=== PATIENT | male | born 1960 | race Caucasian/White ===

== ENCOUNTER 2017-04-11 08:29 | Outpatient (CLI) | payer BC ==
--- NOTE | 2017-04-11 12:15 | XRAY Report ---
THREE-VIEW CERVICAL SPINE: 04/11/2017 CLINICAL INDICATION: Left neck pain. FINDINGS: AP, lateral, odontoid views of the cervical spine demonstrate mild degenerative disc and f acet disease. There is no evidence of acute fracture or subluxation. The prevertebral soft tissues are unremarkable. IMPRESSION: MILD DEGENERATIVE CHANGES. JOB #: [id number] EXT JOB #:[id number]
== END 2017-04-11 08:30 | disposition home or self-care (01) ==
LOC: DI 08:29
PROVIDERS: ATTEND Nurse Practitioner Primary Care
DX: M50.30 Other cervical disc degeneration, unspecified cervical region (principal); M47.9 Spondylosis, unspecified
CPT/HCPCS: 72040

== ENCOUNTER 2017-06-12 09:31 | Outpatient (CLI) | payer BC | END 2017-06-12 09:32 | disposition home or self-care (01) | LOC: SC 09:31 | PROVIDERS: ATTEND Internal Medicine Pulmonary Disease | DX: G47.33 Obstructive sleep apnea (adult) (pediatric) (principal) | CPT/HCPCS: 99203; 99212 ==

== ENCOUNTER 2017-08-01 15:17 | Outpatient (CLI) | payer BC | END 2017-08-01 15:18 | disposition home or self-care (01) | LOC: SC 15:17 | PROVIDERS: ATTEND Nurse Practitioner Family | DX: G47.33 Obstructive sleep apnea (adult) (pediatric) (principal) | CPT/HCPCS: 99212; 99214 ==

== ENCOUNTER 2017-11-09 14:57 | Outpatient (CLI) | payer BC ==
--- NOTE | 2017-11-10 12:17 | CT Report ---
CT SINUSES WITHOUT CONTRAST: 11/09/2017 CLINICAL INDICATION: Chronic sinusitis. TECHNIQUE: Axial CT images of the paranasal sinuses were obtained without contrast, following which sagittal and coronal reconstructions were performed. FINDINGS: There is mucosal thickening in the maxillary sinuses, ethmoid air cells, frontal sinuses and sphenoid sinus, compatible with chronic sinus disease. No air fluid levels are present. Minimal rightward nasal septal deviation is noted. The ostiomeatal units are patent bilaterally. No osseous destruction is seen. The visualized orbital contents are unremarkable. IMPRESSION: CHRONIC PANSINUSITIS. CT DOSE REDUCTION STATEMENT In accordance with CT protocol optimization, one or more of the following dose reduction techniques were utilized for this exam: automated exposure control, adjustment of mA and/or KV based on patient size, or use of iterative reconstructive technique. TD: 11/10/2017 12:16 MTDD
== END 2017-11-09 14:58 | disposition home or self-care (01) ==
LOC: DI 14:57
PROVIDERS: ATTEND Internal Medicine
DX: J32.4 Chronic pansinusitis (principal)
CPT/HCPCS: 70486

== ENCOUNTER 2020-03-21 09:40 | Emergency (ER) | payer SELFPAY ==
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
[2020-03-21] MEDS ORDERED: ACETAMINOPHEN 325 MG TABLET PO STA (10:03)
[2020-03-21] MEDS ORDERED: IBUPROFEN 600 MG TABLET PO STA (10:03)
[2020-03-21] MEDS ORDERED: methocarbamoL 500 MG TABLET PO STA (10:04)
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
[2020-03-21 11:21] VITALS: BP 137/77
== END 2020-03-21 11:21 | disposition home or self-care (01) ==
LOC: ED 09:40
DX: S16.1XXA Strain of muscle, fascia and tendon at neck level, initial encounter (principal); S39.012A Strain of muscle, fascia and tendon of lower back, initial encounter; V43.52XA Car driver injured in collision with other type car in traffic accident, initial encounter; Y92.410 Unspecified street and highway as the place of occurrence of the external cause; M47.812 Spondylosis without myelopathy or radiculopathy, cervical region; M51.26 Other intervertebral disc displacement, lumbar region; F17.200 Nicotine dependence, unspecified, uncomplicated; Z79.82 Long term (current) use of aspirin
CPT/HCPCS: 72125; 72131; 99284

== ENCOUNTER 2023-07-21 10:44 | Outpatient (CLI) | payer MEDICAID ==
--- NOTE | 2023-07-21 11:43 | Sleep Patient Instructions ---
Sleep Center Visit Summary - Patient Visit Information Reason for Visit: Initial consultation - Patient Instructions Additional Instructions: You will continue with CPAP therapy with pressure set at 10-18 cmH2O. A supply prescription will be sent to your new DME supplier. They should reach out to you to set up ordering. We encourage you to continue to try to lose weight. Please follow up with the sleep care office in 1 year. - Clinic Information Contact: [facility] [address] [place] [address] [email or web address] T: [phone]
--- NOTE | 2023-07-21 11:53 | SLEEP CARE CONSULTATION ---
Information from patient questionnaire entered by Brandon Salamanca. I have reviewed and concur with the information entered by Brandon Salamanca. This document represents the service I personally performed and the decisions made by me, Tri Ochoa ARNP. History of Present Illness Service Date and Time: 07/21/2023 1044 Reason for Visit: New patient, Previously diagnosed sleep apnea, Re-establish care Chief Complaint: reports: Snoring, Observed pauses in breathing, Fatigue, Other (UPDATE SUPPLIES) Date of Onset: YRS Usual bedtime: 10PM Snores at night: Yes Observed to quit breathing while asleep: Yes Sleeps alone due to snoring: No Toss, Turn, or Twitch while sleeping: Yes Recalls having dreams: Yes Usually gets out of bed at: 0630 Feels refreshed in the morning: No Morning headache: No Sleepy or fatigued during the day: Yes Ever fallen asleep while driving: No Takes day naps: No Dreams during day naps: No Prior sleep studies: Yes Additional HPI information: TIMOTHY NAVARRO was previously seen in our office in 2017 and was documented to have been diagnosed to have severe, AHI 59.3, obstructive sleep apnea-hypopnea syndrome in 2008 and comes in today to re-establish care for CPAP therapy. - Parasomnia Symptoms Ever been unable to move upon waking from sleep: No Walks in sleep: No Talks in sleep: No Ever acted out dreams in sleep: No Ever felt weak in the knees when startled or emotional: No Bothered by creepy, crawly, restless sensations in legs: No Problems with memory or concentration: No CPAP Compliance Data - Data Reviewed with Patient Average duration of nightly device use: 7 hours 58 minutes Compliance rate %: 97.8 (90/90 days used) Current pressure setting (cmH2O): 10-18 Average residual AHI: 3.3 Average large leak: 14 mins 17 secs Compliance data discussion: He has been buying his supplies online. He is using a full face mask, [employer] AirFit F20, medium cushion. He has a Dreamstation 2. Subjective Patient concerns: denies: aerophagia, mask discomfort, air blowing in eyes, mask leak noise, condensation in mask/hose, nasal congestion, dry mouth, nose, throat, epistaxis Observed to snore while using device: No Current pressure setting perceived as: comfortable (too low at beginning of night) On therapy, patient: reports: sleeping better, awakening more refreshed, being more awake and alert during the day, more rested overall. 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 Patient is Single and lives in [place]. Have you smoked in the past 12 months: No Years of smokin Quit date: 2006 Alcohol use: Yes Alcohol amount and frequency: ONCE A WEEK Caffeine use: Yes Caffeine amount and frequency: 2 CUPS A DAY Family History Family history of sleep disordered breathing: Yes Allergies and Home Medications Known drug allergies: No Drug allergies reviewed: Yes Home medication list reviewed: Yes Allergy and home medication list: Allergies No Known Drug Allergies Allergy (Verified 07/20/23 14:16) Review of Systems Weight gain over past 5 years: 20 Cardiovascular: reports: palpitations Gastrointestinal: reports: heartburn Urinary: reports: urgency Ear/Nose/Throat: reports: nasal congestion, sinus problems Endocrine: reports: sluggishness Musculoskeletal: reports: neck pain, back pain Physical Exam Vital signs obtained and entered by: BRANDON Prabhakar MA Blood Pressure: 126/74 (LEFT ARM) Cuff size: regular Heart Rate: 76 O2 Saturation: 95 Height: 6 ft 1 in Weight: 257 lb 9.6 oz Body Mass Index: 34.0 BMI Classification: Obese Neck circumference: 20.5 Heart: regular rate and rhythm Lungs: clear bilaterally Impression and Plan 1. Obstructive Sleep Apnea-Hypopnea Syndrome, severe, with good treatment compliance and good apnea control. On CPAP therapy, the patient has better sleep quality and is more rested overall. Patient has been using his CPAP consistently since his last visit. He is in need of supplies and has not got a DME supplier at this time. For patient supply concerns, I will have my transcription coordinator inform of DME options. A DWO prescription will then be made. Patient advised to contact this office if further supply problems. He has a Dreamstation 2 that he has had for about a year. He is using a [employer] Airfit F20, medium cushion. We will followup with him next year. Patient's apnea severity and rationale for treatment to reduce apnea, improve sleep quality and reduce cardiovascular and cerebrovascular events was reviewed. I also reviewed the benefit of consistent device use of CPAP for cardiac disease and gastric reflux. 2. Obesity, unspecified. Currently patients BMI is 34. Obesity increases the risk of apnea, CPAP pressure requirements and overall health risks especially cardiovascular and diabetes. Thus patient is advised to lose weight. * Continue auto CPAP pressure at 10-18 cmH2O * Transfer DME * Update supply prescription * Notify me if snoring with mask or feeling that the pressure is too much or too little * Attempt to lose weight * Call this office if any problems using CPAP * Return for follow up in 1 year, or sooner if concerns arise Counseling Topics: Spare mask, Weight loss health impact Prescriptions: Device supplies Follow up with Sleep Care in: 1 year Visit Type: In Office Time Spent with Patient (minutes): 33 Provider Statement: I spent 100% of the Face to Face Visit with the patient with greater than 50% spent counseling the patient and coordination of care.
[2023-07-21 11:59] VITALS: BP 126/74; O2SAT 95
== END 2023-07-21 10:45 | disposition home or self-care (01) ==
LOC: SC 10:44
PROVIDERS: ATTEND Nurse Practitioner Family
DX: G47.33 Obstructive sleep apnea (adult) (pediatric) (principal); E66.9 Obesity, unspecified; Z68.34 Body mass index [BMI] 34.0-34.9, adult; Z87.891 Personal history of nicotine dependence
CPT/HCPCS: 99203; 99212